=== PATIENT | male | born 2000 | race Caucasian/White ===

== ENCOUNTER 2022-08-28 12:40 | Inpatient (IN) | payer MEDICAID ==
[~2022-08-28] VITALS: Ht 165.1 cm; Wt 68.5 kg
[2022-08-28 14:05] LABS: BASOPHILS % (AUTO) 0.8 % (0.0-2.0); HEMATOCRIT 38.3 % (41-53); HEMOGLOBIN 12.5 g/dL (13.5-17.5); LYMPHOCYTES # (AUTO) 2.1 K/uL (1.0-4.8); LYMPHOCYTES % (AUTO) 19.9 % (22.0-44.0); MEAN CORPUSCULAR HEMOGLOBIN 29.3 pg (26.0-34.0); MEAN CORPUSCULAR HGB CONC 32.6 G/dL (31.0-37.0); MEAN CORPUSCULAR VOLUME 90 fL (80-100); MONOCYTES # (AUTO) 0.7 K/uL (0.1-1.0); MONOCYTES % (AUTO) 6.9 % (2.0-9.0); NEUTROPHILS # (AUTO) 7.5 K/uL (1.8-7.7); NEUTROPHILS % (AUTO) 71.4 % (40.0-70.0); RED BLOOD CELL COUNT(AUTO) 4.28 MIL/uL (4.50-5.90); RED CELL DISTRIBUTION WIDTH 13.7 % (11.5-14.5)
[2022-08-28 14:11] LABS: ANION GAP 6 mmol/L (8-16); CALCIUM, TOTAL 8.6 mg/dL (8.8-10.5); CARBON DIOXIDE 26 mmol/L (22-29); CHLORIDE 106 mmol/L (98-107); CREATININE 0.83 mg/dL (0.60-1.30); GLUCOSE,RANDOM 102 mg/dL (70-110); POTASSIUM 3.8 mmol/L (3.5-5.1); SODIUM SERUM 138 mmol/L (136-145); UREA NITROGEN, BLOOD 11 mg/dL (7-18)
[2022-08-28 14:12] LABS: GLOMERULAR FILTR. RATE CALC > 60 mL/min (>60)
[2022-08-28 14:17] LABS: ALANINE AMINOTRANSFERASE 47 U/L (12-78); ALBUMIN 4.1 g/dL (3.4-5.0); ALKALINE PHOSPHATASE 81 U/L (46-116); ASPARTATE AMINOTRANSFERASE 43 U/L (15-37); BILIRUBIN,TOTAL 0.6 mg/dL (0.1-1.0); TOTAL PROTEIN, SERUM 7.1 g/dL (6.4-8.2)
[2022-08-28 14:26] LABS: PLATELET COUNT (AUTO) 335 K/uL (150-450)
[2022-08-28] MEDS ORDERED: OLANZapine 5 MG RAPDIS TABLET PO ONE ×2 (14:30→20:00)
[2022-08-28] MEDS ORDERED: LORazepam 1 MG TABLET PO ONE (14:30)
[2022-08-28] MEDS ORDERED: HALOPERIDOL LACTATE 5 MG/ML VIAL IM ONE (14:45)
[2022-08-28] MEDS ORDERED: DiphenhydrAMINE HCL 50 MG/ML VIAL IM ONE (14:45)
[2022-08-28] MEDS ORDERED: MIDAZOLAM HCL 5 MG/ML VIAL IM ONE ×2 (14:45→19:00)
[2022-08-28 16:44] LABS: COVID AG,FIA SOURCE NASAL SWAB
[2022-08-28] MEDS ORDERED: MAG HYDROX/AL HYDROX/SIMETH ES 30 ML SUSPENSION UDCUP PO PRN (20:00)
[2022-08-28] MEDS ORDERED: TUBERCULIN, PURIFIED PROTEIN DERIVATIVE 5 TU/0.1 ML SYRINGE ID ONE (20:00)
[2022-08-28] MEDS ORDERED: ACETAMINOPHEN 325 MG TABLET PO PRN (20:00)
[2022-08-28] MEDS ORDERED: HydrOXYzine PAMOATE 50 MG CAPSULE PO PRN (20:00)
[2022-08-28] MEDS ORDERED: MAGNESIUM HYDROXIDE SUSPENSION 30 ML UDCUP PO PRN (20:00)
[2022-08-28] MEDS ORDERED: PROMETHAZINE HCL 25 MG TABLET PO PRN (20:00)
[2022-08-28] MEDS ORDERED: GuaiFENesin/D-METHORPHAN [SUGAR-FREE] 200-20MG/10 ML SYRUP UDCUP PO PRN (20:00)
[2022-08-28] MEDS: ZOLPIDEM TARTRATE 10 MG TABLET PO PRN (21:59)
[2022-08-28] MEDS: LORazepam 2 MG TABLET PO PRN (21:59)
[2022-08-28] MEDS: MELATONIN 5 MG TABLET PO SCH (21:59)
[2022-08-28] MEDS: OLANZapine 5 MG RAPDIS TABLET PO PRN (21:59)
[2022-08-28 22:10] VITALS: BP 133/81
[2022-08-29 07:19] LABS: HEMOGLOBIN A1C 5.3 % (3.8-5.6)
[2022-08-29 07:41] LABS: CHOL/HDL RATIO 2.2 (4.2-7.3); FREE T4 (FREE THYROXINE) 1.18 ng/dL (0.76-1.46); THYROID STIMULATING HORMONE 0.81 uIU/mL (0.36-3.74)
[2022-08-29] MEDS: NALTREXONE HCL 50 MG TABLET PO SCH (08:29)
[2022-08-29] MEDS: FOLIC ACID 1 MG TABLET PO SCH (08:29)
[2022-08-29] MEDS: MULTIVITAMINS WITH MINERALS, THERAPEUTIC TABLET PO SCH (08:30)
[2022-08-29] MEDS: LORazepam 2 MG TABLET PO PRN ×3 (08:30→22:24)
[2022-08-29] MEDS: OMEGA-3/DHA/EPA/FISH OIL 1,000 MG CAPSULE PO SCH (08:30)
[2022-08-29] MEDS: OLANZapine 5 MG RAPDIS TABLET PO PRN (08:30)
[2022-08-29] MEDS: THIAMINE 100 MG TABLET PO SCH ×2 (08:30→17:00)
[2022-08-29 08:42] VITALS: BP 123/58
[2022-08-29] MEDS ORDERED: PALIPERIDONE PALMITATE 234 MG/1.5 ML SYRINGE IM ONE (13:45)
[2022-08-29] MEDS: NICOTINE 14 MG/24 HOUR PATCH TD SCH (13:49)
[2022-08-29] MEDS ORDERED: HALOPERIDOL LACTATE 5 MG/ML VIAL IM ONE (15:00)
[2022-08-29] MEDS ORDERED: DiphenhydrAMINE HCL 50 MG/ML VIAL IM ONE (15:00)
[2022-08-29] MEDS ORDERED: LORazepam 2 MG/ML VIAL IM ONE (15:00)
[2022-08-29] MEDS: MELATONIN 5 MG TABLET PO SCH ×2 (21:00→22:23)
[2022-08-29] MEDS: DIVALPROEX SODIUM 500 MG ER TABLET PO SCH ×2 (21:00→22:23)
[2022-08-29] MEDS: OLANZapine 5 MG RAPDIS TABLET PO SCH ×2 (21:00→22:24)
[2022-08-29] MEDS: ZOLPIDEM TARTRATE 10 MG TABLET PO PRN (22:24)
[2022-08-30 07:16] LABS: APPEARANCE,URINE CLEAR (CLEAR); BILIRUBIN,URINE NEGATIVE (NEGATIVE); GLUCOSE, URINE (UA) NEGATIVE (NEGATIVE); KETONES,URINE NEGATIVE (NEGATIVE); LEUKOCYTE ESTERASE ,URINE NEGATIVE (NEGATIVE); NITRATE,URINE NEGATIVE (NEGATIVE); OCCULT BLOOD,URINE NEGATIVE (NEGATIVE); PROTEIN,URINE NEGATIVE (NEGATIVE); UROBILINOGEN,URINE <=1.0 mg/dL (<=1.0)
[2022-08-30 07:22] LABS: AMPHET/METH SCREEN,URINE NEGATIVE (NEGATIVE); BARBITURATE SCREEN, URINE NEGATIVE (NEGATIVE); BENZODIAZEPINES SCREEN,URINE POSITIVE (NEGATIVE); CANNABINOID SCREEN,URINE NEGATIVE (NEGATIVE); COCAINE SCREEN,URINE NEGATIVE (NEGATIVE); METHADONE SCREEN, URINE NEGATIVE (NEGATIVE); OPIATE SCREEN,URINE NEGATIVE (NEGATIVE)
[2022-08-30 07:24] LABS: PHENCYCLIDINE SCREEN,URINE NEGATIVE (NEGATIVE)
[2022-08-30] MEDS: THIAMINE 100 MG TABLET PO SCH ×2 (08:41→16:54)
[2022-08-30] MEDS: NICOTINE 14 MG/24 HOUR PATCH TD SCH (08:41)
[2022-08-30] MEDS: NALTREXONE HCL 50 MG TABLET PO SCH (08:41)
[2022-08-30] MEDS: MULTIVITAMINS WITH MINERALS, THERAPEUTIC TABLET PO SCH (08:41)
[2022-08-30] MEDS: OMEGA-3/DHA/EPA/FISH OIL 1,000 MG CAPSULE PO SCH (08:41)
[2022-08-30] MEDS: FOLIC ACID 1 MG TABLET PO SCH (08:42)
[2022-08-30] MEDS: LORazepam 2 MG TABLET PO PRN ×3 (08:42→21:02)
[2022-08-30] MEDS ORDERED: HALOPERIDOL LACTATE 5 MG/ML VIAL IM ONE (08:45)
[2022-08-30] MEDS ORDERED: LORazepam 2 MG/ML VIAL IM ONE (08:45)
[2022-08-30] MEDS ORDERED: DiphenhydrAMINE HCL 50 MG/ML VIAL IM ONE (08:45)
[2022-08-30 08:49] VITALS: BP 149/85
[2022-08-30] MEDS: OLANZapine 5 MG RAPDIS TABLET PO PRN (16:54)
[2022-08-30] MEDS: MELATONIN 5 MG TABLET PO SCH (20:17)
[2022-08-30] MEDS: DIVALPROEX SODIUM 500 MG ER TABLET PO SCH (20:17)
[2022-08-30] MEDS: ZOLPIDEM TARTRATE 10 MG TABLET PO PRN (20:17)
[2022-08-30 20:25] VITALS: BP 140/82
[2022-08-30] MEDS ORDERED: OLANZapine 10 MG RAPDIS TABLET PO SCH (21:00)
[2022-08-31] MEDS: FOLIC ACID 1 MG TABLET PO SCH (08:56)
[2022-08-31] MEDS: NICOTINE 14 MG/24 HOUR PATCH TD SCH (08:56)
[2022-08-31] MEDS: LORazepam 2 MG TABLET PO PRN (08:56)
[2022-08-31] MEDS: MULTIVITAMINS WITH MINERALS, THERAPEUTIC TABLET PO SCH (08:56)
[2022-08-31] MEDS: OLANZapine 5 MG RAPDIS TABLET PO PRN (08:56)
[2022-08-31] MEDS: THIAMINE 100 MG TABLET PO SCH (08:57)
[2022-08-31] MEDS: OMEGA-3/DHA/EPA/FISH OIL 1,000 MG CAPSULE PO SCH (08:57)
[2022-08-31] MEDS: NALTREXONE HCL 50 MG TABLET PO SCH (08:57)
[2022-08-31] MEDS ORDERED: MELA5TAB40 PO (13:27)
[2022-08-31] MEDS ORDERED: DIVA-80 PO (13:27)
[2022-08-31] MEDS ORDERED: NALT50TA PO (13:27)
[2022-08-31] MEDS ORDERED: OLAN10TA26 PO (13:27)
[2022-09-02] MEDS ORDERED: PALIPERIDONE PALMITATE 156 MG/ML SYRINGE IM ONE (09:00)
== END 2022-08-31 16:36 | disposition home or self-care (01) | DRG 750 ==
LOC: EMS 12:45 → B3A 17:23 → EDBD 17:23
PROVIDERS: ADMIT Psychiatry & Neurology Psychiatry; ATTEND Psychiatry & Neurology Psychiatry
DX: F20.9 Schizophrenia, unspecified (principal); R45.851 Suicidal ideations; D64.9 Anemia, unspecified; Z20.822 Contact with and (suspected) exposure to COVID-19; Z55.9 Problems related to education and literacy, unspecified; Z59.9 Problem related to housing and economic circumstances, unspecified; Z63.9 Problem related to primary support group, unspecified; Z65.3 Problems related to other legal circumstances; Z78.1 Physical restraint status
CPT/HCPCS: 80053; 80061; 80307; 81003; 83036; 84439; 84443; 85025; 86592; 99291; G0480; J1200; J1630; J2060; J2250; Q9967